=== PATIENT | male | born 1980 | race Two or more races ===

== ENCOUNTER 2022-04-05 04:52 | Emergency (ER) | payer OTHER ==
[~2022-04-05] VITALS: Ht 172.7 cm; Wt 97.9 kg
[2022-04-05] MEDS ORDERED: AZIT500T66 PO (07:13)
[2022-04-05] MEDS ORDERED: PROM1SOL4 PO (07:13)
[2022-04-05 07:33] VITALS: BP 137/91
== END 2022-04-05 07:32 | disposition home or self-care (01) ==
LOC: ER 04:52
DX: J03.90 Acute tonsillitis, unspecified (principal); J06.9 Acute upper respiratory infection, unspecified

== ENCOUNTER 2022-07-11 08:14 | Emergency (ER) | payer OTHER ==
[~2022-07-11] VITALS: Ht 160 cm; Wt 98.4 kg
[~2022-07-11 08:14] MED LIST: AZIT500T66 PO; PROM1SOL4 PO
[2022-07-11] MEDS ORDERED: AZIT500T66 PO (09:45)
[2022-07-11] MEDS ORDERED: BENZ100C19 PO (09:45)
[2022-07-11 09:48] VITALS: BP 132/90
== END 2022-07-11 09:50 | disposition home or self-care (01) ==
LOC: ER 08:14
DX: J20.9 Acute bronchitis, unspecified (principal)
CPT/HCPCS: 71046

== ENCOUNTER 2023-06-16 07:09 | Emergency (ER) | payer OTHER ==
[~2023-06-16] VITALS: Ht 172.7 cm; Wt 96.2 kg
[~2023-06-16 07:09] MED LIST changes: +BENZ100C19 PO
[2023-06-16 07:48] VITALS: BP 156/91; PULSE 99; RESP 19; TEMP 98.5; O2SAT 98
[2023-06-16] MEDS ORDERED: AZIT-81 PO (08:32)
[2023-06-16] MEDS ORDERED: BENZ200C64 PO (08:32)
== END 2023-06-16 08:32 | disposition home or self-care (01) ==
LOC: ER 07:09
DX: J20.9 Acute bronchitis, unspecified (principal)

== ENCOUNTER 2024-06-24 13:51 | Emergency (ER) | payer OTHER ==
[~2024-06-24] VITALS: Ht 172.7 cm; Wt 97.7 kg
[~2024-06-24 13:51] MED LIST changes: +AZIT-185 PO; +BENZ200C64 PO
--- NOTE | 2024-06-24 14:13 | ED.PDOC ---
History of Present Illness HPI Comments 43 year old male presents to the ED with chief complaint of high blood pressure. Patient reports that he has been experiencing high blood pressure since his doctor checked it yesterday. Patient relays that his BP yesterday was 171/120 and he has associated headache and SOB on exertion. Patient notes he has not been properly diagnosed with HTN and has no medication at this time. Patient denies any chest pain, numbness, weakness, SOB at rest, dizziness, or blurred vision. Time Seen by MD: 14:11 Primary Care Provider: NONE Reviewed Notes: Nurses Notes, Medications, Allergies Allergies: Coded Allergies: NO KNOWN ALLERGIES (Unverified , 04/05/22) Home Meds Active Scripts Benzonatate (Benzonatate) 200 Mg Cap, 200 MG PO TIDPRN PRN for 10 Days, #60 CAP 0 Refills Prov:CHELSEA TREVINO NP 06/16/23 Azithromycin (ZITHROMAX TABLET) 250 Mg Tb, 250 MG PO DAILY for 5 Days, #6 TAB 0 Refills Take 2 tablets on the first day then one tablet daily Prov:CHELSEA TREVINO NP 06/16/23 Benzonatate (Tessalon Perles) 100 Mg Cap, 200 MG PO TID, #30 CAP Prov:RISHAHB CHRISTOPHER 07/11/22 Azithromycin (Azithromycin) 500 Mg Tab, 1 TAB PO DAILY, #5 TAB Prov:RISHABH CHRISTOPHER 07/11/22 Promethazine-Dm (Promethazine Dm 6.25-15 mg/5Ml) 1 Dior Dior, 5 ML PO TID, #150 ML Prov:RISHABH CHRISTOPHER 04/05/22 Azithromycin (Azithromycin) 500 Mg Tab, 1 TAB PO DAILY, #5 TAB Prov:RISHABH CHRISTOPHER 04/05/22 Information Source: Patient Mode of Arrival: Ambulatory Severity: Moderate Timing: Days Duration: Since onset Prehospital treatment: None Medication Refill: For: Hypertension Past Medical History PAST MEDICAL HISTORY: Denies Surgical History: Denies all surgeries Family History Family History: Reviewed,noncontributory to illness Social History Smoker: Non-Smoker Alcohol: Denies ETOH Use Drugs: Denies Drug Use Lives In: Home Constitutional: denies: chills, diaphoresis, fatigue, fever, malaise, sweats, weakness, others EENTM: denies: blurred vision, double vision, ear bleeding, ear discharge, ear drainage, ear pain, ear ringing, eye pain, eye redness, hearing loss, mouth pain, mouth swelling, nasal discharge, nose bleeding, nose congestion, nose pain, photophobia, tearing, throat pain, throat swelling, voice changes, others Respiratory: reports: SOB with excertion; denies: cough, hemoptysis, orthopnea, SOB at rest, shortness of breath, stridor, wheezing, others Cardiovascular: denies: chest pain, dizzy spells, diaphoresis, Dyspnea on exertion, edema, irregular heart beat, left arm pain, lightheadedness, palpitations, PND, syncope, others Gastrointestinal: denies: abdomen distended, abdominal pain, blood streaked bowels, constipated, diarrhea, dysphagia, difficulty swallowing, hematemesis, melena, nausea, poor appetite, poor fluid intake, rectal bleeding, rectal pain, vomiting, others Genitourinary: denies: burning, dysuria, flank pain, frequency, hematuria, incontinence, penile discharge, penile sore, pain, testicle pain, testicle swelling, urgency, others Neurological: reports: headache; denies: dizziness, fainting, left sided numbness, left sided weakness, numbness, paresthesia, pre-existing deficit, right sided numbness, right sided weakness, seizure, speech problems, tingling, tremors, weakness, others Musculoskeletal: denies: back pain, gout, joint pain, joint swelling, muscle pain, muscle stiffness, neck pain, others Integumetry: denies: bruises, change in color, change in hair/nails, dryness, laceration, lesions, lumps, rash, wounds, others Allergic/Immunocompromised: denies: Difficulty Healing, Frequent Infections, Hives, Itching, others Hematologic/Lymphatic: denies: anemia, blood clots, easy bleeding, easy bruising, swollen glands, others Endocrine: denies: excessive hunger, excessive sweating, excessive thirst, excessive urination, flushing, intolerance to cold, intolerance to heat, unexplained weight gain, unexplained weight loss, others Psychiatric: denies: anxiety, bipolar disorder, depression, hopeless, panic disorder, schizophrenia, sleepless, suicidal, others All Other Systems: Reviewed and Negative Physical Exam General Appearance: Moderate Distress, Normal HEENT: Normal ENT Inspection, PERRL/EOMI Neck: Full Range of Motion, Non-Tender, Normal, Normal Inspection Respiratory: Chest Non-Tender, Lungs Clear, No Accessory Muscle Use, No Respiratory Distress, Normal Breath Sounds Cardiovascular: No Edema, No JVD, No Murmur, No Gallop, Normal Peripheral Pulses, Regular Rate/Rhythm Breast Exam: Deferred Gastrointestinal: No Organomegaly, Non Tender, No Pulsatile Mass, Normal Bowel Sounds, Soft Genitalia: Deferred Pelvic: Deferred Rectal: Deferred Extremities: No calf tenderness, Normal capillary refill, Normal inspection, Normal range of motion, Non-tender, No pedal edema Musculoskeletal : Apperance: Normal Neurologic: Alert, 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 Was a procedure done?: No Differential Dx Considerations may include: Hypertension Electrolyte imbalance X-Ray, Labs, Meds, VS Vital Signs Date Time Temp Pulse Resp B/P (MAP) Pulse Ox O2 Delivery O2 Flow Rate FiO2 06/24/24 14:27 139/96 06/24/24 14:22 98.1 95 18 139/96 (110) 97 98.1 06/24/24 14:22 95 18 97 Room Air 06/24/24 14:12 98.0 103 18 144/112 (123) 98 Lab Test 06/24/24 14:18 Range/Units White Blood Count 7.7 4.4-10.8 10^3/uL Red Blood Count 5.52 4.5-5.90 10^6/uL Hemoglobin 17.4 13.5-17.5 g/dL Hematocrit 49.8 41.0-53.0 % Mean Corpuscular Volume 90.3 80.0-100.0 fL Mean Corpuscular Hemoglobin 31.6 28.0-32.0 pg Mean Corpuscular Hemoglobin Concent 35.0 32.0-36.0 g/dL Red Cell Distribution Width 12.8 11.8-14.3 % Platelet Count 194 140-450 10^3/uL Mean Platelet Volume 9.8 6.9-10.8 fL Neutrophils (%) (Auto) 66.2 37.0-80.0 % Lymphocytes (%) (Auto) 25.2 10.0-50.0 % Monocytes (%) (Auto) 6.2 0.0-12.0 % Eosinophils (%) (Auto) 1.5 0.0-7.0 % Basophils (%) (Auto) 0.9 0.0-2.0 % Neutrophils # (Auto) 5.1 1.6-8.6 10 ^3/uL Lymphocytes # (Auto) 1.9 0.4-5.4 10 ^3/uL Monocytes # (Auto) 0.5 0-1.3 10 ^3/uL Eosinophils # (Auto) 0.1 0-0.8 10 ^3/uL Basophils # (Auto) 0.1 0-0.2 10 ^3/uL Nucleated Red Blood Cells 0.0 % Sodium Level 138 136-145 mmol/L Potassium Level 4.5 3.5-5.1 mmol/L Chloride Level 107 98-107 mmol/L Carbon Dioxide Level 26 20-31 mmol/L Anion Gap 5 5-15 Blood Urea Nitrogen 19 9-23 mg/dL Creatinine 1.16 0.700-1.30 mg/dL Glomerular Filtration Rate Calc 80 >90 mL/min BUN/Creatinine Ratio 16.4 10.0-20.0 Serum Glucose 113 H 74-106 mg/dL Calcium Level 11.1 H 8.7-10.4 mg/dL Patient alert. Blood pressure elevated. Does not take any medication. Vitals stable. Answering all questions. Calcium high. Was given clonidine. Blood pressure normalized. Denies chest pain No leg swelling. No calf tenderness. Explained to the patient about diet. Exercise. Relaxation technique. Was given prescription of lisinopril. Was told to follow up with his primary care physician. Was told to come back if there is any problem. Time of 1ST Reevaluation: 15:11 Reevaluation 1ST: Unchanged Patient Education/Counseling: Diagnosis, Treatment Family Education/Counseling: No Family Present Departure 1 Departure Time of Disposition: 14:45 Impression: Primary Impression: HTN (hypertension) Qualified Codes: I10 - Essential (primary) hypertension Disposition: 01 HOME / SELF CARE / HOMELESS Condition: Good e-Prescriptions Lisinopril (Lisinopril) 2.5 Mg Tab 1 TAB PO DAILY for 10 Days, #10 TAB 5 Refills Prov: ARCADIO ROCHA MD 06/24/24 Discharged With: Self Critical Care Note Critical Care Time?: No Stability Stability form required: No Heart Score Heart Score: Heart Score Response (Comments) Value History N/A 0 EKG N/A 0 Age N/A 0 Risk Factors N/A 0 Troponin N/A 0 Total 0 I personally scribed for ARCADIO ROCHA MD ([email or web address]) on 06/24/24 at 14:13. Electronically submitted by Pedro Byrd ([email or web address]). ARCADIO ROCHA MD Jun 24, 2024 14:13
[2024-06-24 14:26] LABS: Basophils # (auto) 0.1 10 ^3/uL (0-0.2); Basophils % (auto) 0.9 % (0.0-2.0); Eosinophils # (auto) 0.1 10 ^3/uL (0-0.8); Eosinophils % (auto) 1.5 % (0.0-7.0); Hematocrit 49.8 % (41.0-53.0); Hemoglobin 17.4 g/dL (13.5-17.5); Lymphocytes # (auto) 1.9 10 ^3/uL (0.4-5.4); Lymphocytes % (auto) 25.2 % (10.0-50.0); Mean Corpuscular Hemoglobin 31.6 pg (28.0-32.0); Mean Corpuscular Volume 90.3 fL (80.0-100.0); Monocytes # (auto) 0.5 10 ^3/uL (0-1.3); Monocytes % (auto) 6.2 % (0.0-12.0); Neutrophils # (auto) 5.1 10 ^3/uL (1.6-8.6); Neutrophils % (auto) 66.2 % (37.0-80.0); Platelet Count (auto) 194 10^3/uL (140-450); Red Blood Cells 5.52 10^6/uL (4.5-5.90); Red Cell Distribution Width 12.8 % (11.8-14.3); White Blood Cell 7.7 10^3/uL (4.4-10.8)
[2024-06-24] MEDS: cloNIDine HCL 0.1 MG TAB PO ONE (14:27)
[2024-06-24 14:33] LABS: Chloride 107 mmol/L (98-107); Potassium 4.5 mmol/L (3.5-5.1); Sodium 138 mmol/L (136-145)
[2024-06-24 14:34] LABS: Anion Gap 5 (5-15); Carbon Dioxide 26 mmol/L (20-31)
[2024-06-24 14:39] LABS: BUN/Creatinine Ratio 16.4 (10.0-20.0); Blood Urea Nitrogen 19 mg/dL (9-23)
[2024-06-24 14:43] LABS: Calcium 11.1 mg/dL (8.7-10.4); Glucose 113 mg/dL (74-106)
[2024-06-24] MEDS ORDERED: LISI2.5T47 PO (14:46)
[2024-06-24 15:06] VITALS: BP 140/97; PULSE 98; RESP 18; TEMP 98; O2SAT 97
== END 2024-06-24 15:07 | disposition home or self-care (01) ==
LOC: ER 13:51
DX: I10 Essential (primary) hypertension (principal); Z79.899 Other long term (current) drug therapy
CPT/HCPCS: 36415; 80048; 85025